=== PATIENT | male | born 1960 | race Caucasian/White ===

== ENCOUNTER 2016-09-09 12:49 | Day surgery (SDC) | payer OTHER ==
[~2016-09-09] VITALS: Ht 182.9 cm; Wt 108.1 kg
[~2016-09-09 12:49] MED LIST: ASPIR 8181 M1 PO; CARAFATE1 GM PO; CATAPRES-TTS 11 EACH TD; DEXILANT60 MG PO; ELAVIL10 MG PO; EXFORGE 5/321 TABLET PO; FLEXERIL10 MG PO; HYGROTON25 MG PO; KLONOPIN0.5 M1 PO; LABETALOL HCL100 MG PO; LASIX40 MG PO; LEXAPRO20 MG PO; LIPITOR10 MG PO; MOBIC15 MG PO; MORGIDOX100 MG PO; NEURONTIN400 MG PO; PERCOCET 7.51 TABLET PO; PERFOROMIS20 MCG/2 M IH; PROAIR HFA8.5 GM IH; RANITIDINE HCL300 M1 PO; TOPAMAX100 MG PO; VITAMIN D31000 UNIT PO
== END 2016-09-09 15:12 | disposition home or self-care (01) ==
LOC: PAIN 12:49 → SDC 14:00 → PAIN 15:12
DX: M47.26 Other spondylosis with radiculopathy, lumbar region (principal); M51.16 Intervertebral disc disorders with radiculopathy, lumbar region; M54.5 Low back pain; G89.29 Other chronic pain; I50.9 Heart failure, unspecified; I11.0 Hypertensive heart disease with heart failure; J44.9 Chronic obstructive pulmonary disease, unspecified; K21.9 Gastro-esophageal reflux disease without esophagitis; Z79.82 Long term (current) use of aspirin; Z79.891 Long term (current) use of opiate analgesic; Z87.891 Personal history of nicotine dependence
CPT/HCPCS: J1030; J2250; J3010; S0020

== ENCOUNTER 2016-09-16 08:23 | Day surgery (SDC) | payer OTHER ==
[~2016-09-16] VITALS: Ht 182.9 cm; Wt 108.1 kg
== END 2016-09-16 09:45 | disposition home or self-care (01) ==
LOC: PAIN 08:23 → SDC 09:00 → PAIN 09:00
DX: M47.26 Other spondylosis with radiculopathy, lumbar region (principal); M51.16 Intervertebral disc disorders with radiculopathy, lumbar region; M54.5 Low back pain; G89.29 Other chronic pain; J43.9 Emphysema, unspecified; K21.9 Gastro-esophageal reflux disease without esophagitis; I11.0 Hypertensive heart disease with heart failure; I50.9 Heart failure, unspecified; F17.210 Nicotine dependence, cigarettes, uncomplicated; Z79.82 Long term (current) use of aspirin
CPT/HCPCS: J1030; J2250; J3010; S0020

== ENCOUNTER 2016-11-18 08:26 | Day surgery (SDC) | payer OTHER ==
[~2016-11-18] VITALS: Ht 182.9 cm; Wt 107.0 kg
== END 2016-11-18 10:21 | disposition home or self-care (01) ==
LOC: PAIN 08:26 → SDC 09:00 → PAIN 09:00
DX: M47.26 Other spondylosis with radiculopathy, lumbar region (principal); M51.16 Intervertebral disc disorders with radiculopathy, lumbar region; M54.5 Low back pain; G89.29 Other chronic pain; J44.9 Chronic obstructive pulmonary disease, unspecified; I11.0 Hypertensive heart disease with heart failure; I50.9 Heart failure, unspecified; Z87.891 Personal history of nicotine dependence
CPT/HCPCS: J1100; J2250; J3010

== ENCOUNTER 2017-08-25 06:50 | Day surgery (SDC) | payer OTHER ==
[~2017-08-25] VITALS: Ht 185.4 cm; Wt 107.6 kg
[~2017-08-25 06:50] MED LIST changes: +CLINDAMYCIN HC300 MG PO
[2017-08-25] MEDS ORDERED: DIOVAN320 MG PO (07:13)
[2017-08-25] MEDS ORDERED: FLONASE ALLERG9.9 ML BOTH NARES (07:14)
[2017-08-25] MEDS ORDERED: DUONEB 2.5-0.5 M3 ML AEROSOL (07:14)
[2017-08-25] MEDS ORDERED: NITROSTAT0.4 MG SL (07:15)
== END 2017-08-25 08:57 | disposition home or self-care (01) ==
LOC: PAIN 06:50 → SDC 07:30 → PAIN 07:30
PROC: 3E0T3TZ Introduction of Destructive Agent into Peripheral Nerves and Plexi, Percutaneous Approach (ICD-10-PCS; principal; 2017-08-25)
PROC: B01B1ZZ Fluoroscopy of Spinal Cord using Low Osmolar Contrast (ICD-10-PCS; principal; 2017-08-25)
DX: M47.816 Spondylosis without myelopathy or radiculopathy, lumbar region (principal); M51.36 Other intervertebral disc degeneration, lumbar region; M51.26 Other intervertebral disc displacement, lumbar region; F17.200 Nicotine dependence, unspecified, uncomplicated
CPT/HCPCS: 80048; J1030; J2250; S0020

== ENCOUNTER 2017-09-08 07:03 | Day surgery (SDC) | payer OTHER ==
[~2017-09-08] VITALS: Ht 185.4 cm; Wt 107.5 kg
[~2017-09-08 07:03] MED LIST changes: +DIOVAN320 MG PO; +DUONEB 2.5-0.5 M3 ML AEROSOL; +FLONASE ALLERG9.9 ML BOTH NARES; +NITROSTAT0.4 MG SL
== END 2017-09-08 08:50 | disposition home or self-care (01) ==
LOC: PAIN 07:03 → SDC 07:30 → PAIN 08:50
DX: M47.816 Spondylosis without myelopathy or radiculopathy, lumbar region (principal); F17.200 Nicotine dependence, unspecified, uncomplicated; M51.36 Other intervertebral disc degeneration, lumbar region; M51.26 Other intervertebral disc displacement, lumbar region; Z79.82 Long term (current) use of aspirin
CPT/HCPCS: J1030; J2250; J3010; S0020